=== PATIENT | female | born 1960 | race Caucasian/White ===

== ENCOUNTER 2020-06-04 11:38 | Emergency (ER) | payer OTHER ==
[~2020-06-04] VITALS: Ht 162.6 cm; Wt 69.9 kg
[2020-06-04 11:48] VITALS: Ht 162.6 cm; Wt 69.9 kg
[2020-06-04 17:15] VITALS: BP 132/75
== END 2020-06-04 17:15 | disposition home or self-care (01) ==
LOC: ED 11:38
DX: M54.16 Radiculopathy, lumbar region (principal); M51.36 Other intervertebral disc degeneration, lumbar region; M79.10 Myalgia, unspecified site; Z90.49 Acquired absence of other specified parts of digestive tract; V48.6XXA Car passenger injured in noncollision transport accident in traffic accident, initial encounter; Y93.89 Activity, other specified; Y92.481 Parking lot as the place of occurrence of the external cause; Y99.8 Other external cause status
CPT/HCPCS: J1100; J1885